=== PATIENT | male | born 1945 | race Caucasian/White ===

== ENCOUNTER 2022-07-25 10:38 | Day surgery (SDC) | payer OTHER, MEDICARE ==
[~2022-07-25] VITALS: Ht 190.5 cm; Wt 93.0 kg
[2022-07-25] VITALS (11 sets, daily range): BP systolic 96–144; BP diastolic 68–93; PULSE 62–86; TEMP 97.5–98.2
[2022-07-25 11:52] LABS: BASO % 0.6 % (0.0-2.0); EOS # 0.1 K/mm3 (0.0-0.7); EOS % 2.1 % (0.0-4.0); GRAN % 57.3 % (42.2-75.2); HEMATOCRIT 40.7 % (42.0-52.0); HEMOGLOBIN 13.2 g/dl (13.5-18.0); LYMPH # 1.5 K/mm3 (1.2-3.4); LYMPH % 29.1 % (20.0-51.0); MEAN CELL VOLUME 85 fl (80.0-100.0); MEAN CORPUSCULAR HEMOGLOBIN 28 pg (27-31); MEAN CORPUSCULAR HGB CONC 32 g/dl (33.0-37.0); MEAN PLATELET VOLUME 9.2 fl (7.4-10.4); MONO # 0.6 K/mm3 (0.1-0.6); MONO % 10.7 % (1.7-9.3); PLATELET COUNT 216 K/mm3 (130-400); RED BLOOD COUNT 4.77 M/mm3 (4.20-5.60); REDCELL DISTRIBUTION WIDTH-CV 14.6 % (11.5-14.5)
[2022-07-25 11:59] LABS: INR 1.3 (0.8-3.0); PROTHROMBIN TIME 14.5 SECONDS (9.7-12.8)
[2022-07-25 12:21] LABS: CALCIUM 9.5 mg/dL (8.4-10.2); CREATININE, serum 0.81 mg/dL (0.72-1.25); POTASSIUM 3.9 mmol/L (3.5-4.5)
[2022-07-25] MEDS ORDERED: PROVENTIL0.09 MG/A1 IH (12:44)
[2022-07-25] MEDS ORDERED: LANOXIN 0.120.125 MG PO (12:45)
[2022-07-25] MEDS ORDERED: BUSPAR5 MG PO (12:45)
[2022-07-25] MEDS ORDERED: CYMBALTA 30MG30 MG PO (12:46)
[2022-07-25] MEDS ORDERED: SURFAK 240240 MG/CAP PO (12:46)
[2022-07-25] MEDS ORDERED: LASIX 20MG TABL20 MG PO (12:47)
[2022-07-25] MEDS ORDERED: XALATAN EYE DROPS OD (12:48)
[2022-07-25] MEDS ORDERED: COZAAR 50MG50 MG/TAB PO (12:48)
[2022-07-25] MEDS ORDERED: SYNTHROID0.05 MG/TA PO (12:48)
[2022-07-25] MEDS ORDERED: TOPROL XL100 MG PO (12:49)
[2022-07-25] MEDS ORDERED: PRILOSEC 20MG20 MG PO (12:49)
[2022-07-25] MEDS ORDERED: VESICARE 5MG5 MG PO (12:51)
[2022-07-25] MEDS ORDERED: MIRAPEX0.5 MG PO (12:51)
[2022-07-25] MEDS ORDERED: ALDACTONE 25MG25 M1 PO (12:52)
[2022-07-25] MEDS ORDERED: XARELTO20 MG PO (12:52)
--- NOTE | 2022-07-25 16:35 | NUR ---
PT ADMITTED TO UNIT. ADMISSION INTAKE AND ASSESSMENT COMPLETED. MED REC UPDATED. PT REPORTING MILD PAIN TO L SHOULDER. GAUZE DRESSING IN PLACE, C/D/I. PT AMBULATING AROUND ROOM WELL. DOES REPORT FALLS AT HOME. CALL LIGHT WITHIN REACH, BED ALARMS IN PLACE. WILL CONTINUE TO MONITOR.
[2022-07-26 03:33] VITALS: BP 144/80; PULSE 80
--- NOTE | 2022-07-26 05:15 | NUR ---
ASSESSMENT COMPLETE FOR QUALITY ASSURANCE TECHNICIAN. PT SITTING ON THE SIDE OF THE BED TALKING TO HIS BROTHER ON HIS CELLPHONE. PT COMPLAINED OF SOME SURGICAL SITE DISCOMFORT AND RESTLESS LEGS. PT GIVEN TYLENOL FOR DISCOMFORT AND MIRAPEX FOR HIS RESTLESS LEGS. PT ALSO COMPLAINED INSOMNIA. PT GIVEN RESTORIL FOR INSOMNIA. PT FELT ALL MEDS WERE EFFECTIVE. PT DENIED CHEST PAIN, PALPITATIONS, SOB, N,V,D OR DIZZINESS. SURGICAL SITE SHOWED NO SIGNS OF SWELLING OR HEMATOMA. DRESSING TO SITE CDI. PT EXPRESSED NO ADDITIONAL NEEDS AT THIS TIME. CALL LIGHT WITHIN REACH.
[2022-07-26 06:38] LABS: BASO % 0.6 % (0.0-2.0); EOS # 0.1 K/mm3 (0.0-0.7); EOS % 1.9 % (0.0-4.0); GRAN # 3.2 K/mm3 (1.4-6.5); GRAN % 61.5 % (42.2-75.2); HEMATOCRIT 39.9 % (42.0-52.0); HEMOGLOBIN 13.1 g/dl (13.5-18.0); LYMPH # 1.3 K/mm3 (1.2-3.4); LYMPH % 25.7 % (20.0-51.0); MEAN CELL VOLUME 84 fl (80.0-100.0); MEAN CORPUSCULAR HEMOGLOBIN 28 pg (27-31); MEAN CORPUSCULAR HGB CONC 33 g/dl (33.0-37.0); MEAN PLATELET VOLUME 9.5 fl (7.4-10.4); MONO # 0.5 K/mm3 (0.1-0.6); MONO % 10.1 % (1.7-9.3); PLATELET COUNT 200 K/mm3 (130-400); RED BLOOD COUNT 4.75 M/mm3 (4.20-5.60); REDCELL DISTRIBUTION WIDTH-CV 14.2 % (11.5-14.5)
[2022-07-26 06:45] LABS: CALCIUM 8.9 mg/dL (8.4-10.2); CREATININE, serum 0.83 mg/dL (0.72-1.25); POTASSIUM 3.8 mmol/L (3.5-4.5)
[2022-07-26 07:47] VITALS: BP 124/67; PULSE 69; TEMP 98
[2022-07-26] MEDS ORDERED: CEPHALEXIN500 M1 PO (10:15)
[2022-07-26] MEDS ORDERED: PACERONE400 MG PO (10:29)
--- NOTE | 2022-07-26 10:38 | NUR ---
PT SITTING UP ON SOB. AM MEDS GIVEN. PT HAS DISCHARGE ORDERS WILL GO TODAY. ALANA FROM [employer] HELPED PT SET UP ACCT ON PHONE FOR PACEMAKER. INCISION CDI. PT TO DISCHARGE HOME LATER TODAY,
--- NOTE | 2022-07-26 12:03 | NUR ---
DISCHARGE INSTRUCTIONS REVIEWED WITH PT QUESTIONS SOLICITED AND ANSWERED. PATIENT LEFT AMBULATORY.
== END 2022-07-26 12:05 | disposition home or self-care (01) ==
LOC: COL.CAR 10:38 → MEDICAL 15:55 → COL.CAR 07-26 12:05
PROVIDERS: Internal Medicine Cardiovascular Disease
DX: R55 Syncope and collapse (principal); R00.1 Bradycardia, unspecified; R00.2 Palpitations; I45.5 Other specified heart block; E78.2 Mixed hyperlipidemia; I10 Essential (primary) hypertension; I48.91 Unspecified atrial fibrillation
CPT/HCPCS: OP; J0690; J2250; J3010